=== PATIENT | female | born 1980 | race African-American/Black ===

== ENCOUNTER 2017-06-01 17:17 | Emergency (ER) | payer BC ==
[~2017-06-01] VITALS: Ht 170.2 cm; Wt 89.5 kg
[~2017-06-01 17:17] MED LIST: HYDR-2768 PO
[2017-06-01 17:19] VITALS: BP 142/79; PULSE 88; RESP 16; TEMP 98.7; O2SAT 98
[2017-06-01] MEDS ORDERED: IBUP1TAB7 PO (17:51)
[2017-06-01] MEDS ORDERED: CLIN150C14 PO (17:51)
--- NOTE | 2017-06-01 17:51 | PD ---
HPI Chief Complaint: Oral / Dental Pain or Problem Time Seen by Provider: 17:39 Travel History International Travel<30 days: No Contact w/Intl Traveler<30days: No Traveled to known affect area: No History of Present Illness HPI 36-year-old female presents to emergency Department with complaint of right lower dental abscess times one week. Denies facial edema. Denies sore throat, difficult to swelling, usual drooling. Pain radiates to her right ear. No known aggravating or relieving factors. Symptoms are mild in severity. Patient is also complaining of chest tightness and feeling like she can't take a deep breath every now and then for the past week to 2 weeks. She said she was sick with allergies, sneezing and nasal congestion, and things that it is related to that. She denies chest pain, shortness of breath, wheezing. Has been taking [id number] allergy with relief of nasal congestion and sneezing. Symptoms are mild in severity. No known aggravating or relieving factors. Dr. Angela Orellana primary care provider. Allergies to penicillin. History of asthma as a child. Has no other medical complaints. No other modifying factors or associated signs and symptoms. PFSH Past Medical History Cancer: No Cardiovascular Problems: Yes Diabetes: No (GESTATIONAL DIABETES JUL 2008) Glaucoma: No Hepatitis: No Hiatal Hernia: No Hypertension: No Respiratory: No Thyroid Disease: No Ovarian Cysts: Yes Tubal Ligation: Yes Past Surgical History Gynecologic Surgery: Yes (BILAT TUBAL LIGATION AUGUST 2009 ) Thoracic Surgery: No Other Surgery: Yes Social History Alcohol Use: Yes (ONE DRINK EVERY 4-5 MONTHS) Tobacco Use: No Substance Use: No Allergies-Medications (Allergen,Severity, Reaction): Coded Allergies: penicillin G (Unverified Allergy, Severe, 12/27/16) Reported Meds & Prescriptions Reported Meds & Active Scripts Active Ibuprofen 800 Mg Tab 800 Mg PO Q6HR PRN Clindamycin (Clindamycin HCl) 150 Mg Cap 300 Mg PO Q6H 10 Days Reported Hctz (Hydrochlorothiazide) 25 Mg Tab 25 Mg PO DAILY Review of Systems Except as stated in HPI: all other systems reviewed are Neg Physical Exam Narrative GENERAL: Well-nourished, well-developed black female patient, in no acute distress; afebrile, nontoxic-appearing SKIN: Warm and dry. HEAD: Atraumatic. Normocephalic. No facial edema, erythema, tenderness on palpation. No lymphadenopathy. EYES: Pupils equal and round. No scleral icterus. No injection or drainage. ENT: Mucosa pink and moist. No erythema or exudates. No uvular edema. No uvular , palatal, or tonsillar deviation. Airway patent. EARS: Bilateral pinnae and external canals appear within normal limits. Bilateral tympanic membranes without erythema, dullness or perforation. MOUTH: Mucous membranes moist, no lesions, tongue and gums appear normal. Right lower second molar with tenderness on palpation. Surrounding gingiva is without erythema, edema, drainage. No obvious abscess noted. NECK: Trachea midline. No lymphadenopathy. CARDIOVASCULAR: Regular rate and rhythm. No murmur appreciated. RESPIRATORY: No accessory muscle use. Breath sounds clear and equal throughout. Breath sounds equal bilaterally. No retractions or tachypnea. GASTROINTESTINAL: Rounded. MUSCULOSKELETAL: No obvious deformities. No clubbing. No cyanosis. No edema. NEUROLOGICAL: Awake and alert. Oriented 3. No obvious cranial nerve deficits. Motor grossly within normal limits. Normal speech. PSYCHIATRIC: Appropriate mood and affect; insight and judgment normal. Data Data Last Documented VS Vital Signs Date Time Temp Pulse Resp B/P (MAP) Pulse Ox O2 Delivery O2 Flow Rate FiO2 06/01/17 17:19 98.7 88 16 142/79 (100) 98 Room Air Orders Orders Ed Discharge Order (06/01/17 17:51) [facility] Medical Decision Making Medical Screen Exam Complete: Yes Emergency Medical Condition: Yes Medical Record Reviewed: Yes Differential Diagnosis Dentalgia, dental abscess, allergic rhinitis, chest tightness Narrative Course 36-year-old female with dentalgia to right lower second molar and chest tightness. Says she feels like she can't take a deep breath every now and then. She has history of asthma as a child. Lungs are clear and equal throughout. Patient is in no acute distress without retractions or tachypnea. I offered to do a chest x-ray and the patient declined; states she will follow- up with her primary care provider in regards to her complaint of chest tightness. She denies chest pain, shortness of breath. Clindamycin, ibuprofen prescribed for home. Instructed patient to follow up with dentist. Instructed patient to follow up with primary care provider. Patient verbalizes understanding and agreement with treatment plan. Patient is medically cleared and stable for discharge. Discussed reasons to return to the emergency department. Patient agrees with treatment plan. The patients vital signs are stable and the patient is stable for outpatient follow-up and treatment. Patient discharged home, stable and in no acute distress. Diagnosis Primary Impression: Tooth pain Additional Impression: Chest tightness Referrals: Dentist Primary Care Physician Patient Instructions: Dental Abscess (ED), General Instructions, Toothache (ED) Additional Instructions: Complete full course of antibiotics Ibuprofen or Tylenol as directed and as needed to reduce pain and inflammation Warm or cool compresses to the affected area Follow-up with dentist Follow-up with primary care provider Return to emergency department immediately with worsening of symptoms Med/Other Pt SpecificInfo: Prescription(s) given Scripts Ibuprofen (Ibuprofen) 800 Mg Tab 800 MG PO Q6HR Y for PAIN, #30 TAB 0 Refills Prov: Estephania Cooney 06/01/17 Clindamycin (Clindamycin) 150 Mg Cap 300 MG PO Q6H for Infection for 10 Days, #80 CAP 0 Refills Prov: Estephania Cooney 06/01/17 Disposition: 01 DISCHARGE HOME Condition: Stable Estephania Cooney Jun 01, 2017 17:51
== END 2017-06-01 18:01 | disposition home or self-care (01) ==
LOC: NEPK 17:17
DX: K04.7 Periapical abscess without sinus (principal); R07.89 Other chest pain
CPT/HCPCS: 99283